=== PATIENT | male | born 1990 | race Hispanic/Latino ===

== ENCOUNTER 2019-08-14 21:37 | Emergency (ER) | payer BC, SELFPAY ==
--- NOTE | ~2019-08-14 | XR_ITS ---
EXAMINATION: XR chest 1V portable EXAM DATE: 08/14/2019 22:33 INDICATION: Shortness of breath. TECHNIQUE: Portable AP frontal chest x-ray was obtained. There is no prior study for comparison. FINDINGS: The lungs are clear. There are no pleural effusions. Cardiac silhouette is prominent but magnified on this AP technique. There is no pneumothorax suspected. The bones and soft tissues are unremarkable. IMPRESSION: No acute cardiopulmonary findings. Reviewed, dictated and finalized at location A.
[2019-08-14 21:42] VITALS: BP 152/89; PULSE 112; RESP 25; TEMP 37.2; O2SAT 92
--- NOTE | 2019-08-14 21:54 | ED.SOB ---
HPI - SOB/Dyspnea General Chief Complaint: Shortness of Breath/Dyspnea Stated Complaint: sob Time Seen by Provider: 08/14/19 21:45 Source: patient Mode of arrival: ambulatory Limitations: language barrier (patient is icelandic speaking so family friend at bedside interpreting. ) History of Present Illness HPI Narrative: This patient is 28 yo male with h/o asthma who presents with c/o sob and wheezing starting today. Patient was performing demolition in some apartments when he developed shortness of breath and wheezing. He reports he has not had an inhaler in a couple of years. He denies associated chest pain, nasuea, vomiting, or uri symptoms. He also denies fever. He denies difficulty breathing before performing the demolition. He also denies sick contacts and denies known exposure to COVID 19. Pertinent past history: asthma Associated symptoms: wheezing Related Data Allergies Allergy/AdvReac Type Severity Reaction Status Date / Time cefoperazone Allergy Other Verified 08/14/19 21:48 Review of Systems Review of Systems: All systems reviewed & are unremarkable except as noted in HPI and below Constitutional: Constitutional: Denies chills and Denies fever(s) ENT: Denies nasal congestion and Denies sore throat Cardiovascular: Cardiovascular: Denies chest pain, Denies rapid heart rate and Denies radiating jaw, neck or arm pain Respiratory: Respiratory: Denies cough, Reports dyspnea and Reports wheezing Gastrointestinal: Gastrointestinal: Denies abdominal pain, Denies diarrhea, Denies nausea and Denies vomiting PMF Past Medical History Medical History (Updated 08/15/19 @ 00:36 by Lore Castro MD) Asthma Social History Social History (Updated 08/14/19 @ 21:58 by Lore Castro MD) Smoking status: Never smoker Exam Const: General: no acute distress and alert Orientation/consciousness: patient oriented x3 HENMT: Head: normocephalic and atraumatic Eyes: EOM: EOMs intact bilaterally Chest: Chest palpation & inspection: normal inspection of the chest Resp: Effort & Inspection: tachypneic Auscultation: wheezes expiratory wheezes and throughout and diminished lung sounds Cardio: Rate: tachycardic Rhythm: regular rhythm Heart sounds: no murmurs Skin: General skin exam: normal color Rashes: no rashes Neuro: General: patient oriented x3 and moves all extremities Extrem: General: no pedal edema Psych: Mental Status: mental status grossly normal Course Reevaluation(s) Reevaluation #1: PAtient states he feels much better. He denies any sob. He has no fever or cough. This appears to be asthma exacerbation. Date: 08/15/19 Time: 00:34 Vital Signs Vital signs: Vital Signs Temperature 99.0 F 08/14/19 21:42 Pulse Rate 112 H 08/14/19 21:42 Respiratory Rate 25 H 08/14/19 21:42 Blood Pressure 152/89 H 08/14/19 21:42 Pulse Oximetry 92 08/14/19 21:42 Temperature 99.0 F 08/14/19 21:42 Pulse Rate 88 08/15/19 00:44 Respiratory Rate 18 08/15/19 00:44 Blood Pressure 122/77 08/15/19 00:44 Pulse Oximetry 98 08/15/19 00:44 MDM - SOB/Dyspnea Differential Diagnosis Differential diagnosis: Likely congestive heart failure, community acquired pneumonia, asthma with exacerbation and other (bronchitis) Lab Data Attestation: I reviewed the patient's lab results. Result diagrams: 08/14/19 22:54 08/14/19 22:54 Labs: Lab Results 08/14/19 08/14/19 Range/Units 22:54 22:54 WBC 11.8 H (4.5-10.0) K/mm3 RBC 4.71 (4.6-6.20) M/mm3 Hgb 14.0 (14.0-18.0) g/dL Hct 41.0 L (42.0-52.0) % MCV 87.0 (80-100) fl MCH 29.7 (26-34) pg MCHC 34.1 (32-36) g/dl RDW 12.0 (11.5-14.5) % Plt Count 196 (150-375) k/mm3 MPV 9.9 (7.4-10.4) fl Immature Gran % (Auto) 0.2 (0-0.5) % Neut % (Auto) 70.7 (45.5-73.1) % Lymph % (Auto) 18.0 L (18.3-44.2) % [place] % (Auto) 8.8 H (2.6-8.5) % Eos % (Auto) 2.0 (0-
[2019-08-14] MEDS: IPRATROPIUM BR 0.02% INH SOLN 0.5 MG/2.5 ML VIAL INHALATION (22:10)
[2019-08-14] MEDS: ALBUTEROL SULFATE NEB 2.5 MG/0.5 ML INH 5 MG INHALATION (22:10)
[2019-08-14 22:13] VITALS: PULSE 106; RESP 19
[2019-08-14 22:15] VITALS: PULSE 113; RESP 23
[2019-08-14] MEDS: predniSONE 20 MG TABLET 60 MG PO (22:48)
[2019-08-14 23:06] LABS: Basophils Percent Auto 0.3 % (0.2-1.2); Eosinophils Absolute Auto 0.2 K/mm3 (0-0.3); Immature Granulocyte Absolute 0.02 K/mm3 (0.00-0.031); Immature Granulocyte Percent A 0.2 % (0-0.5); Lymphocytes Absolute Auto 2.11 K/mm3 (0.9-3.2); Mean Corpuscular HGB Conc 34.1 g/dl (32-36); Mean Corpuscular Hemoglobin 29.7 pg (26-34); Mean Platelet Volume 9.9 fl (7.4-10.4); Monocytes Percent Auto 8.8 % (2.6-8.5); Neutrophils Absolute Auto 8.3 K/mm3 (1.3-6.7); Neutrophils Percent Auto 70.7 % (45.5-73.1); Platelet Count Result 196 k/mm3 (150-375); Red Blood Count 4.71 M/mm3 (4.6-6.20); White Blood Count 11.8 K/mm3 (4.5-10.0)
[2019-08-14 23:13] LABS: Alanine Aminotransferase 29 U/L (4-50); Albumin Level 4.4 g/dL (3.5-5.1); Alkaline Phosphatase 68 U/L (38-126); Aspartate Amino Transferase 29 U/L (17-59); Bilirubin,Total 0.4 mg/dL (0.2-1.3); Blood Urea Nitrogen 15 mg/dL (9-20); Calcium 9.2 mg/dL (8.4-10.2); Carbon Dioxide 27 mmol/L (22-30); Chloride 102 mmol/L (98-107); Estimated CRCL calculation 132 ml/min; Estimated Glomerular Filt Rate > 60; Glucose 100 mg/dL (75-110); Potassium 3.9 mmol/L (3.4-5.0); Sodium 136 mmol/L (137-145)
[2019-08-14 23:25] LABS: NT Pro B Type Natriuretic Pept 28 PG/ML (5-100); Troponin I < 0.012 ng/mL (0.000-0.034)
[2019-08-15] MEDS: ALBUTEROL SULFATE (*SP) AEROSOL 1 PUFF 2 PUFF INHALATION
[2019-08-15 00:07] VITALS: PULSE 98
[2019-08-15 00:44] VITALS: BP 122/77; PULSE 88; RESP 18; O2SAT 98
== END 2019-08-15 00:45 | disposition home or self-care (01) ==
PROVIDERS: Emergency Provider General Practice
DX: J45.901 Unspecified asthma with (acute) exacerbation (principal)
CPT/HCPCS: 36415; 71045; 80053; 83880; 84484; 85025; 94640; 99284; A9270; J7512